=== PATIENT | female | born 1990 | race Caucasian/White ===

== ENCOUNTER 2020-01-21 10:15 | Outpatient (RCR) | payer OTHER, SELFPAY | END 2020-01-21 23:55 | disposition home or self-care (01) | LOC: HO.PHPA 10:15 | PROVIDERS: Visit Provider Psychiatry & Neurology Psychiatry | DX: F33.2 Major depressive disorder, recurrent severe without psychotic features (principal) | CPT/HCPCS: 90853 ==

== ENCOUNTER 2021-11-26 18:50 | Inpatient (IN) | payer OTHER, SELFPAY ==
[2021-11-26] MEDS: Acetaminophen 325 MG TABLET 650 MG PO (21:43)
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
[2021-11-26 23:10] VITALS: BP 125/84; PULSE 88; TEMP 36.8; O2SAT 98
[2021-11-27 05:53] VITALS: BP 124/76; PULSE 88; TEMP 36.6; O2SAT 88
[2021-11-27 07:57] LABS: MANUAL DIFF FLAG NO
[2021-11-27 08:06] LABS: Basophils Absolute Auto 0.1 X10*3/uL (0.0-0.2); Basophils Percent Auto 0.8 % (0-2); Eosinophils Absolute Auto 0.3 X10*3/uL (0.0-0.4); Hematocrit 34.5 % (37.0-47.0); Hemoglobin 11.8 g/dl (12.0-16.0); Imm Gran Abs Auto 0.02 X10*3/uL (0.00-0.03); Imm Gran Pct Auto 0.3 % (0.0-0.4); Lymphocytes Absolute Auto 1.2 X10*3/uL (1.2-4.9); Lymphocytes Percent Auto 19.1 % (20-40); Mean Corpuscular HGB Conc 34.2 g/dl (31.0-35.0); Mean Corpuscular Hemoglobin 31.3 pg (27.0-33.0); Mean Corpuscular Volume 91.5 fL (80.0-98.0); Mean Platelet Volume 9.1 fL (9.4-12.3); Monocytes Absolute Auto 0.5 X10*3/uL (0.1-1.2); Monocytes Percent Auto 7.7 % (2-11); Neutrophils Absolute Auto 4.4 x10*3/uL (2.0-8.3); Neutrophils Percent Auto 68.1 % (45-73); Platelet Count 326 X10*3/uL (160-400); Red Blood Count 3.77 X10*6/uL (4.20-5.50); Red Cell Distribution Width 11.9 % (11.0-16.0); White Blood Count 6.5 X10*3/uL (4.8-10.8)
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
[2021-11-27 12:21] VITALS: BP 125/58; PULSE 92; RESP 18; O2SAT 98
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
[2021-11-27 18:00] VITALS: BP 122/80; PULSE 68; RESP 16; TEMP 36.5
[2021-11-28 13:32] VITALS: BP 115/72; PULSE 76; RESP 16; TEMP 36.6; O2SAT 100
[2021-11-28] MEDS: Acetaminophen 325 MG TABLET 650 MG PO ×2 (13:55→20:48)
--- NOTE | 2021-11-28 14:30 | P.PNPSI_ITS ---
Subjective Subjective Date of Service: 11/28/21 Reason For Visit: Unspecified depressive disorder Interim History: Met with patient today and her mother who was present. Mother said that she is looking forward to her daughter coming home and 1 of her main goals is to give her daughter a place to stay that is less triggering and less overall stressful. Discussed medications and patient is a little ambivalent about starting them at this point. She wants to see how her mood does and how her ability is to cope with her mood on her own for the next few weeks prior to meeting her outpatient psychiatric provider. This way she can gauge her own ability to work through her depression and self-deprecating thoughts without the aid of a medication. Patient also is hopeful that she can learn to overcome her depression through therapy and not need medication though she reiterates she is open to taking it. Mortgage Loan Underwriter reviewed the risks and benefits of medication; given the seriousness of this attempt, sign writer hand strongly recommended she start medication now on the unit, to give it time to build up so that she will have information if this medication is helpful prior to meeting her outpatient psychiatrist and hopefully to have the benefit of it stabilizing qualities to help prevent depression from again becoming overwhelming. Patient however says she still wants to wait a while before starting. Since she has never attempted self-harm in the past, she did not know this was possible for her to become this hopeless. Patient said she is now aware that when she starts to get to a certain point of depression, she has the ability for her thinking to become catastrophic and cross the line into the suicidality. Patient says she will make a safety plan where she will specifically reach out when she starts herself feeling the way she did in the week prior to this attempt. She feels that living at her mother's with whom she has a good rapport and is very supportive, will be safe environment. Patient remains future oriented, wanting to get to her job and back and her daughter's life. She continues to deny any SI at all and hopes to discharge early next week. Mental Status Exam Mental Status Exam Narrative: Pt is alert and oriented; behavior is cooperative, calm; dressed in hospital attire with adequate hygiene, sutures bilateral neck visible; mood is described as better and affect congruent; eye contact appropriate; Speech is normal rate, volume and prosody and not pressured; no psychomotor retardation present; thought process is organized and goal directed; Thought content is on tx, overcoming depression in getting back to her regular life; otherwise pertinent to relevant topics and without any delusional content, paranoid ideations or grandiosity; denies any SI/HI. There is no evidence of perceptual disturbance and denies any AVH. Patients insight and judgment are fair. Diagnostics Vital Signs (24Hr): Vital Signs - 24 hr 11/27/21 18:00 11/28/21 13:32 Temperature 97.7 F 97.8 F Pulse Rate 68 76 Respiratory Rate 16 16 Blood Pressure 122/80 115/72 Pulse Oximetry 100 Oxygen Delivery Method Room Air Labs Results: 11/27/21 07:45 Labs: Laboratory Results - last 48 hr 11/27/21 07:45 WBC 6.5 RBC 3.77 L Hgb 11.8 L Hct 34.5 L MCV 91.5 MCH 31.3 MCHC 34.2 RDW 11.9 Plt Count 326 MPV 9.1 L Immature Gran % (Auto) 0.3 Neut % (Auto) 68.1 Lymph % (Auto) 19.1 L [place] % (Auto) 7.7 Eos % (Auto) 4.0 Baso % (Auto) 0.8 Lymph # (Auto) 1.2 [place] # (Auto) 0.5 Eos # (Auto) 0.3 Baso # (Auto) 0.1 Abs Immat Gran (auto) 0.02 Absolute Neuts (auto) 4.4 Absolute Nucleated RBC 0.000 Nucleated RBC % (auto) 0.0 Medications Medications Current Medications Acetaminophen (Acetaminophen 325 Mg Tablet) 650 mg PO Q6H PRN PRN Reason: Headache/Pain Mild Scale (1-3) Last Admin: 11/28/21 13:55 Dose: 650 mg Al Hydroxide/Mg Hydroxide (Magnesium Hydrox/Alum Hydrox 30 Ml Oral.Susp) 30 ml PO Q6H PRN PRN Reason: Heartburn/Nausea Hydroxyzine HCl (Hydroxyzine Hcl 25 Mg Tablet) 25 mg PO Q6H PRN PRN Reason: Anxiety Magnesium Hydroxide (Milk Of Magnesia 30 Ml Oral.Susp) 30 ml PO DAILY PRN PRN Reason: Constipation Nicotine Polacrilex (Nicotine Polacrilex 2 Mg Gum) 4 mg BUCCAL Q2H PRN PRN Reason: Nicotine Cravings Trazodone HCl (Trazodone Hcl 50 Mg Tablet) 50 mg PO BEDTIME PRN PRN Reason: Insomnia Allergies Allergies Allergy/AdvReac Type Severity Reaction Status Date / Time orange [ORANGES] Allergy Unknown ITCHING Unverified 01/09/20 12:26 CATS [CAT] Allergy Unknown SWOLLEN Uncoded 01/09/20 12:26 RED EYES, BREATHING ISSUES DOGS [DOG] Allergy Unknown SWOLLEN Uncoded 01/09/20 12:26 RED EYES, BREATHING ISSUES SEASONAL ALLERGIES Allergy Unknown EXCESSIVE Uncoded 01/09/20 12:26 TEARING, RHINITIS Assessment & Plan Assessment & Plan (1) MDD (major depressive disorder), recurrent episode, severe: Status: Acute Code(s): F33.2 - Major depressive disorder, recurrent severe without psychotic features Plan Patient is 31-year-old female with history of depression and anxiety who presents for serious suicide attempt by cutting bilateral neck, left antecubital fossa, bilateral wrists, resulting in numerous sutures, having left suicide note isolating herself during attempt which is in the face of chronic depression and increasing psychosocial stresses. -patient is currently depressed but feels that she is getting better and is becoming hopeful about the future and getting perspective on how depression has impaired her thinking about herself and her options -patient is open to trying medications -patient also hopes to discharge soon, saying she is going to move in with her mother and father who were very supportive; she wants to get back to her job and reports all SI is resolved -it has been 5 days since attempt and it is possible that during these past few days patient has been able to adequately process this event and her depression; will gather collateral 11/28 Patient reports that mood is better and she has more optimistic thinking. No SI all. Patient has thought seriously about medication and describes her reasons why she does not want to start the just yet. She says she is not opposed them but Does not want to ignore her reservations; she alternately hopes that she can overcome her self-deprecating thoughts through therapy and will not need medications though she reiterates she is willing to take them. Mortgage Loan Underwriter finds patient's reasoning to be mature and Agrees it is a reasonable approach. Patient remains future oriented and is moving back in with her supportive parents. Plan: CV Q 15 minute checks Patient is open to medication trial; will continue to discuss Mother supportive; will gather collateral and assess patient's stability I spent minutes with the patient and/or on the patient floor today, greater than?50% of which was spent counseling/coordinating care. Patient educated on: diagnosis, medication risk/benefits and therapeutic stra tegies Informed Consent: understands Reason for contiued inpatient stay Substantial Risk for: stable for discharge and med/psych decompensation
[2021-11-28 17:09] VITALS: BP 110/58; PULSE 81; RESP 16; O2SAT 99
[2021-11-29 06:00] VITALS: BP 108/68; PULSE 84; RESP 17; TEMP 36.9; O2SAT 99
--- NOTE | 2021-11-29 16:33 | P.PNPSI_ITS ---
Subjective Subjective Date of Service: 11/29/21 Reason For Visit: Unspecified depressive disorder Interim History: Patient's mood much better today with significantly brighter affect. Patient able to discuss and reflect on her situation, even able to smile laugh at times. Patient was very willing to explore her history with depression and shared much more of her history in this relationship. She disclosed that she had been trying to break up with her partner for years but when she did he engaged in significant self-harm, carving her her name on his abdomen and showing of at work to show her, threatening to hurt himself if she left him. At ever since then she has felt caught in This trap. Because of some long-standing self- deprecating Thinking, she would assume Problems in the relationship were her fault. Patient discussed that she knows that the self-deprecating thoughts are not true but that she has been having them for so long they can be difficult to challenge at times. Patient is eager however to continue working on correcting her perspective and is grateful she's getting a chance to. She remains ambivalent about medications but understands there role and is continuing to think about it. Mental Status Exam Mental Status Exam Narrative: Pt is alert and oriented; behavior is cooperative, calm; dressed in hospital attire with adequate hygiene, sutures bilateral neck visible; mood is described as better and affect congruent, brighter; eye contact appropriate; Speech is normal rate, volume and prosody and not pressured; no psychomotor retardation present; thought process is organized and goal directed; Thought content is on tx, overcoming depression in getting back to her regular life; otherwise pertinent to relevant topics and without any delusional content, paranoid ideations or grandiosity; denies any SI/HI. There is no evidence of perceptual disturbance and denies any AVH. Patients insight and judgment are fair. Diagnostics Vital Signs (24Hr): Vital Signs - 24 hr 11/28/21 17:09 11/29/21 06:00 Temperature 98.4 F Pulse Rate 81 84 Respiratory Rate 16 17 Blood Pressure 110/58 L 108/68 Pulse Oximetry 99 99 Oxygen Delivery Method Room Air Room Air Labs Results: 11/27/21 07:45 Medications Medications Current Medications Acetaminophen (Acetaminophen 325 Mg Tablet) 650 mg PO Q6H PRN PRN Reason: Headache/Pain Mild Scale (1-3) Last Admin: 11/28/21 20:48 Dose: 650 mg Al Hydroxide/Mg Hydroxide (Magnesium Hydrox/Alum Hydrox 30 Ml Oral.Susp) 30 ml PO Q6H PRN PRN Reason: Heartburn/Nausea Hydroxyzine HCl (Hydroxyzine Hcl 25 Mg Tablet) 25 mg PO Q6H PRN PRN Reason: Anxiety Magnesium Hydroxide (Milk Of Magnesia 30 Ml Oral.Susp) 30 ml PO DAILY PRN PRN Reason: Constipation Nicotine Polacrilex (Nicotine Polacrilex 2 Mg Gum) 4 mg BUCCAL Q2H PRN PRN Reason: Nicotine Cravings Trazodone HCl (Trazodone Hcl 50 Mg Tablet) 50 mg PO BEDTIME PRN PRN Reason: Insomnia Allergies Allergies Allergy/AdvReac Type Severity Reaction Status Date / Time orange [ORANGES] Allergy Unknown ITCHING Unverified 01/09/20 12:26 CATS [CAT] Allergy Unknown SWOLLEN Uncoded 01/09/20 12:26 RED EYES, BREATHING ISSUES DOGS [DOG] Allergy Unknown SWOLLEN Uncoded 01/09/20 12:26 RED EYES, BREATHING ISSUES SEASONAL ALLERGIES Allergy Unknown EXCESSIVE Uncoded 01/09/20 12:26 TEARING, RHINITIS Assessment & Plan Assessment & Plan (1) MDD (major depressive disorder), recurrent episode, severe: Status: Acute Code(s): F33.2 - Major depressive disorder, recurrent severe without psychotic features Plan Patient is 31-year-old female with history of depression and anxiety who presents for serious suicide attempt by cutting bilateral neck, left antecubital fossa, bilateral wrists, resulting in numerous sutures, having left suicide note isolating herself during attempt which is in the face of chronic depression and increasing psychosocial stresses. -patient is currently depressed but feels that she is getting better and is becoming hopeful about the future and getting perspective on how depression has impaired her thinking about herself and her options -patient is open to trying medications -patient also hopes to discharge soon, saying she is going to move in with her mother and father who were very supportive; she wants to get back to her job and reports all SI is resolved -it has been 5 days since attempt and it is possible that during these past few days patient has been able to adequately process this event and her depression; will gather collateral 11/28 Patient reports that mood is better and she has more optimistic thinking. No SI all. Patient has thought seriously about medication and describes her reasons why she does not want to start the just yet. She says she is not oppose d them but Does not want to ignore her reservations; she alternately hopes that she can overcome her self-deprecating thoughts through therapy and will not need medications though she reiterates she is willing to take them. Collet Making Machine Operator finds patient's reasoning to be mature and Agrees it is a reasonable approach. Patient remains future oriented and is moving back in with her supportive parents. 11/29 patient continues to improve with milieu therapy and 1 1 therapy sessions. No SI. Still ambivalent about medications and wants to wait till meets with outpatient provider but is approaching her depression Seriously and with insight. Prior to discharge will make sure appointments are set up and safety plan reviewed. Plan: CV Q 15 minute checks Patient is open to medication trial; will continue to discuss Mother supportive; will gather collateral and assess patient's stability I spent minutes with the patient and/or on the patient floor today, greater than?50% of which was spent counseling/coordinating care. Patient educated on: diagnosis, medication risk/benefits and therapeutic strategies Informed Consent: understands Reason for contiued inpatient stay Substantial Risk for: stable for discharge
[2021-11-29 18:00] VITALS: BP 125/74; PULSE 83; RESP 16; TEMP 36.8; O2SAT 100
[2021-11-29] MEDS: Acetaminophen 325 MG TABLET 650 MG PO (21:03)
[2021-11-29 21:05] VITALS: BMI 23.2
[2021-11-30 06:00] VITALS: BP 115/57; PULSE 87; RESP 18; TEMP 37.3; O2SAT 100
--- NOTE | 2021-11-30 17:03 | HO.PSYCHPN ---
Subjective Subjective Date of Service: 11/30/21 Reason For Visit: Unspecified depressive disorder Interim History: Patient remains in good mood, with bright affect, easy with which to engage; pt is optimistic. No SI. She is looking for to discharge. Mental Status Exam Mental Status Exam Narrative: Pt is alert and oriented; behavior is cooperative, calm; dressed in hospital attire with adequate hygiene, sutures rosa bilateral neck visible; mood is described as good and affect congruent, brighter; eye contact appropriate; Speech is normal rate, volume and prosody and not pressured; no psychomotor retardation present; thought process is organized and goal directed; Thought content is on tx and getting back to her regular life; otherwise pertinent to relevant topics and without any delusional content, paranoid ideations or grandiosity; denies any SI/HI. There is no evidence of perceptual disturbance and denies any AVH. Patients insight and judgment are fair. Diagnostics Vital Signs (24Hr): Vital Signs - 24 hr 11/29/21 18:00 11/30/21 06:00 Temperature 98.3 F 99.2 F Pulse Rate 83 87 Respiratory Rate 16 18 Blood Pressure 125/74 115/57 L Pulse Oximetry 100 100 Oxygen Delivery Method Room Air Room Air BMI result Body Mass Index 23.2 Labs Results: 11/27/21 07:45 Medications Medications Current Medications Acetaminophen (Acetaminophen 325 Mg Tablet) 650 mg PO Q6H PRN PRN Reason: Headache/Pain Mild Scale (1-3) Last Admin: 11/29/21 21:03 Dose: 650 mg Al Hydroxide/Mg Hydroxide (Magnesium Hydrox/Alum Hydrox 30 Ml Oral.Susp) 30 ml PO Q6H PRN PRN Reason: Heartburn/Nausea Hydroxyzine HCl (Hydroxyzine Hcl 25 Mg Tablet) 25 mg PO Q6H PRN PRN Reason: Anxiety Magnesium Hydroxide (Milk Of Magnesia 30 Ml Oral.Susp) 30 ml PO DAILY PRN PRN Reason: Constipation Nicotine Polacrilex (Nicotine Polacrilex 2 Mg Gum) 4 mg BUCCAL Q2H PRN PRN Reason: Nicotine Cravings Trazodone HCl (Trazodone Hcl 50 Mg Tablet) 50 mg PO BEDTIME PRN PRN Reason: Insomnia Allergies Allergies Allergy/AdvReac Type Severity Reaction Status Date / Time orange [ORANGES] Allergy Unknown ITCHING Unverified 01/09/20 12:26 CATS [CAT] Allergy Unknown SWOLLEN Uncoded 01/09/20 12:26 RED EYES, BREATHING ISSUES DOGS [DOG] Allergy Unknown SWOLLEN Uncoded 01/09/20 12:26 RED EYES, BREATHING ISSUES SEASONAL ALLERGIES Allergy Unknown EXCESSIVE Uncoded 01/09/20 12:26 TEARING, RHINITIS Assessment & Plan Assessment & Plan (1) MDD (major depressive disorder), recurrent episode, severe: Status: Acute Code(s): F33.2 - Major depressive disorder, recurrent severe without psychotic features Plan Patient is 31-year-old female with history of depression and anxiety who presents for serious suicide attempt by cutting bilateral neck, left antecubital fossa, bilateral wrists, resulting in numerous sutures, having left suicide note isolating herself during attempt which is in the face of chronic depression and increasing psychosocial stresses. -patient is currently depressed but feels that she is getting better and is becoming hopeful about the future and getting perspective on how depression has impaired her thinking about herself and her options -patient is open to trying medications -patient also hopes to discharge soon, saying she is going to move in with her mother and father who were very supportive; she wants to get back to her job and reports all SI is resolved -it has been 5 days since attempt and it is possible that during these past few days patient has been able to adequately process this event and her depression; will gather collateral 11/28 Patient reports that mood is better and she has more optimistic thinking. No SI all. Patient has thought seriously about medication and describes her reasons why she does not want to start the just yet. She says she is not opposed them but Does not want to ignore her reservations; she alternately hopes that she can overcome her self-deprecating thoughts through therapy and will not need medications though she reiterates she is willing to take them. Facilities Plant Engineer finds patient's reasoning to be mature and Agrees it is a reasonable approach. Patient remains future oriented and is moving back in with her supportive parents. 11/29 patient continues to improve with milieu therapy and 1 1 therapy sessions. No SI. Still ambivalent about medications and wants to wait till meets with outpatient provider but is approaching her depression Seriously and with insight. Prior to discharge will make sure appointments are set up and safety plan reviewed. 11/30 patient remains in good mood, no SI, optimistic and looking forward to discharge tomorrow Plan: CV Q 15 minute checks Patient is open to medication trial; will continue to discuss Mother supportive; will gather collateral and assess patient's stability I spent minutes with the patient and/or on the patient floor today, greater than?50% of which was spent counseling/coordinating care. Patient educated on: diagnosis Reason for contiued inpatient stay Substantial Risk for: stable for discharge
[2021-11-30 18:00] VITALS: BP 117/65; PULSE 108; TEMP 36.9; O2SAT 98
--- NOTE | 2021-12-01 09:40 | PM.PSYDC ---
DS: Providers Provider Date of Service: 12/01/21 Date of admission: 11/26/21 18:50 Date of discharge: 12/01/21 Primary care physician: Marquis Lomeli MD Attending physician on admission: Chaz Velasquez Consults: 11/26/21 19:10 Consult to Hospitalist Routine Consulting Provider: Hospitalist Reason For Exam: admission physical Attending physician on discharge: Chaz Velasquez DS: Diagnosis Discharge Diagnosis (1) MDD (major depressive disorder), recurrent episode, severe: Status: Acute Mental Status Exam Mental Status Exam Narrative: Pt is alert and oriented; behavior is cooperative, calm; dressed in hospital attire with adequate hygiene, sutures rosa bilateral neck visible; mood is described as good and affect congruent, brighter; eye contact appropriate; Speech is normal rate, volume and prosody and not pressured; no psychomotor retardation present; thought process is organized and goal directed; Thought content is on tx and getting back to her regular life; otherwise pertinent to relevant topics and without any delusional content, paranoid ideations or grandiosity; denies any SI/HI. There is no evidence of perceptual disturbance and denies any AVH. Patients insight and judgment are fair. Data Data Completed and Pending Completed studies during hospitalization [Text1]: 11/27/21 07:45 WBC 6.5 RBC 3.77 L Hgb 11.8 L Hct 34.5 L MCV 91.5 MCH 31.3 MCHC 34.2 RDW 11.9 Plt Count 326 MPV 9.1 L Immature Gran % (Auto) 0.3 Neut % (Auto) 68.1 Lymph % (Auto) 19.1 L [place] % (Auto) 7.7 Eos % (Auto) 4.0 Baso % (Auto) 0.8 Lymph # (Auto) 1.2 [place] # (Auto) 0.5 Eos # (Auto) 0.3 Baso # (Auto) 0.1 Abs Immat Gran (auto) 0.02 Absolute Neuts (auto) 4.4 Absolute Nucleated RBC 0.000 Nucleated RBC % (auto) 0.0 DS: Summary Hospital Course Hospital Course: HPI: Patient is 31-year-old female with history of depression and anxiety who presents for serious suicide attempt by cutting bilateral neck, B/L antecubital fossa, wrist, resulting in numerous sutures, having left suicide note isolating herself during attempt which is in the face of chronic depression and increasing psychosocial stresses. Hospital course: -on admission, patient reports continued depression, but SI is fully resolved and she feels that she is getting better and is becoming hopeful about the future and getting perspective on how depression has impaired her thinking about herself and her options. Patient was ambivalent about medications, mostly wanting to try therapy 1st. She understood blog writer's concerns about the seriousness of her attempt and benefit of medication; however she explained she wants to see how her mood does and how her ability is to cope with her mood on her own for the next few weeks prior to meeting her outpatient psychiatric provider.? This way she can gauge her own ability to work through her depression and self-deprecating thoughts without the aid of a medication.? Patient also is hopeful that she can learn to overcome her depression through therapy and not need medication though she reiterates she is open to taking it. Patient remained forthcoming in sessions and utilized therapeutic resources on the unit. She was appropriate with peers and staff and remained without any SI at all. Patient reported sleeping and eating well and felt ready for discharge. Patient's mother intermittently present throughout admission they both agreed the plan is for patient to go home and live with her parents which patient feels is a safe and supportive environment. Over the next several days patient's mood significantly improved and her affect was noticeably brighter. She maintained she was safe and was eager to get back to work and in her daughter's life. Patient had a safety plan which she discussed and felt she was able to reach out for help should she again feel unsafe. Patient requested discharge, feeling ready to go home and that she was stable and capable of continuing treatment as an outpatient. Patient was not in imminent risk for harm to self or others and her request for discharge honored. Time spent discussing smoking cessation with patient: 3 to 10 minutes Status at Discharge Functional status at discharge: independent ambulation Overall status at discharge: patient is back to baseline Time Spent with Patient Time attestation: Total time spent providing and/or coordinating discharge services: Time spent: Less than 30 minutes Discharge Plan Discharge Patient Disposition: Home, Self-Care Discharge Diagnosis: mdd, recurrent,severe in partial remission Referrals: Bonnie Carbone,GUI,OPERATOR HELPER [Other] - 1 Week (Referral for psychiatric medication management services Patient should follow-up with provider as scheduled appointment not obtained prior to patient discharging from [facility]. Provider will reach out to patient following discharge to schedule appointment.) Rosie Sun [Other] - 1 Week (Referral for [facility] worker (case management services) Appointment is in person following discharge from [facility] You have a $20 copay that will be required at the time of appointment.) Shanta Hernandez [Other] - 12/02/21 4:00 pm (Outpatient appointment with therapist following discharge from [facility].) Marquis Lomeli MD [Other] - 12/13/21 11:20 am (Appointment with Primary Care Physician ) Marquis Lomeli MD [Primary Care Provider] - 12/02/21 12:20 pm (in office) Discharge Orders: Discharge Order (Routine); Ordered 12/01/21 Ordered By: Chaz Velasquez Diet: Regular diet Activity on Discharge: As tolerated Stand Alone Forms: Patient Portal Discharge page, Community Support Care Plan Goals: Maintain mood and safe behaviors Take medications as prescribed Practice coping skills Continue with outpatient providers and reach out to them as needed Health Concerns: Mood stability and behaviors Plan of Treatment: Follow up with your psychiatric provider and other outpatient providers regarding above concerns Take medications as prescribed Assessment: Risk assessment at time of discharge:? Patient was interviewed prior to discharge and found to be fully oriented and without any SI or HI. Patient has insight and demonstrates good judgment in terms of wanting to pursue treatment. Patient is not in imminent risk of harm to self or others and has a safety plan that includes presenting to the closest ER or calling 911 if feeling unsafe.? Patient has been observed closely by nursing and unit staff throughout admission; patient has not engaged in any behaviors that suggest dangerousness to self or others and has demonstrated appropriate behaviors and impulse control Discharge Date/Time: 12/01/21 11:19
== END 2021-12-01 11:19 | disposition home or self-care (01) | DRG 751 ==
PROVIDERS: Admitting Provider Psychiatry & Neurology Psychiatry; PCP Internal Medicine; Visit Provider Psychiatry & Neurology Psychiatry
DX: F33.2 Major depressive disorder, recurrent severe without psychotic features (principal); R45.851 Suicidal ideations; Z91.51 Personal history of suicidal behavior
CPT/HCPCS: 36415; 85025